=== PATIENT | male | born 1995 | race Two or more races ===

== ENCOUNTER 2019-09-16 21:25 | Emergency (ER) | payer SELFPAY ==
[~2019-09-16] VITALS: Ht 175.3 cm; Wt 86.2 kg
[2019-09-16 21:30] VITALS: BP 164/82
== END 2019-09-16 22:05 | disposition left against medical advice (07) ==
LOC: EDBD 21:25 → ER 21:27
DX: F10.10 Alcohol abuse, uncomplicated (principal); Z53.21 Procedure and treatment not carried out due to patient leaving prior to being seen by health care provider

== ENCOUNTER 2020-03-29 17:04 | Emergency (ER) | payer SELFPAY ==
[~2020-03-29] VITALS: Ht 175.3 cm; Wt 72.6 kg
[2020-03-29 17:48] LABS: Basophils # (auto) 0 10 ^3/uL (0-0.2); Basophils % (auto) 0.4 % (0.0-2.0); Eosinophils # (auto) 0 10 ^3/uL (0-0.8); Eosinophils % (auto) 0.2 % (0.0-7.0); Hematocrit 47.9 % (41.0-53.0); Lymphocytes # (auto) 2.1 10 ^3/uL (0.4-5.4); Mean Corpuscular Hemoglobin 32.5 pg (28.0-32.0); Mean Corpuscular Hgb Conc. 35.5 g/dL (32.0-36.0); Mean Corpuscular Volume 91.7 fL (80.0-100.0); Monocytes # (auto) 0.7 10 ^3/uL (0-1.3); Monocytes % (auto) 6.7 % (0.0-12.0); Neutrophils # (auto) 6.8 10 ^3/uL (1.6-8.6); Neutrophils % (auto) 70.7 % (37.0-80.0); Nucleated Red Blood Cells % 0.1 %; Platelet Count (auto) 259 10^3/uL (140-450); Red Blood Cells 5.22 10^6/uL (4.5-5.90); Red Cell Distribution Width 13.2 % (11.8-14.3); White Blood Cell 9.7 10^3/uL (4.4-10.8)
[2020-03-29 17:55] LABS: Urine Bacteria NONE SEEN /hpf (None Seen); Urine Blood Negative /uL (Negative); Urine Specific Gravity 1.001 (1.001-1.035); Urine WBC <1 /hpf (0 - 3)
[2020-03-29 17:59] LABS: Alcohol, Urine < 3.0 mg/dL (0-10); Amphetamine Screen, Urine POSITIVE (NEGATIVE); Barbiturate Scree,Urine NEGATIVE (NEGATIVE); Benzodiazephine Screen, Urine NEGATIVE (NEGATIVE); Cannabinoid Screen, Urine NEGATIVE (NEGATIVE); Cocaine Screen, Urine NEGATIVE (NEGATIVE); Phencyclidine Screen, Urine NEGATIVE (NEGATIVE)
[2020-03-29 18:00] LABS: Alanine Aminotransferase 35 U/L (16-61); Anion Gap 13 (5-15); Aspartate Aminotransferase 30 U/L (15-37); BUN/Creatinine Ratio 6.7; Blood Alcohol < 3.0 mg/dL (0-5); Blood Urea Nitrogen 7 mg/dL (7-18); Carbon Dioxide 21 mmol/L (21-32); Chloride 100 mmol/L (98-107); GFR African American 112 mL/min; GFR Non-African American 92 mL/min; Glucose 95 mg/dL (74-106); Magnesium 2.2 mg/dL (1.6-2.6); Potassium 3.6 mmol/L (3.5-5.1); Salicylate < 1.7 mg/dL (2.8-20.0); Sodium 134 mmol/L (136-145)
[2020-03-29 18:05] LABS: Alkaline Phosphatase 84 U/L (45-117); Bilirubin, Total 1.4 mg/dL (0.2-1.0); Total Protein 8.8 g/dL (6.4-8.2)
[2020-03-29 18:06] LABS: Opiate Scree,Urine NEGATIVE (NEGATIVE)
[2020-03-29 18:26] LABS: Acetaminophen < 2.0 ug/mL (10-30)
[2020-03-29 19:00] VITALS: BP 126/75
== END 2020-03-29 20:32 | disposition home or self-care (01) ==
LOC: ER 17:04 → EDBD 17:04 → ER 20:32
DX: R40.0 Somnolence (principal); F41.9 Anxiety disorder, unspecified
CPT/HCPCS: 36415; 80053; 80307; 80320; 80329; 81001; 83735; 84484; 85025

== ENCOUNTER 2022-07-23 23:32 | Emergency (ER) | payer SELFPAY ==
[~2022-07-23] VITALS: Ht 177.8 cm; Wt 90.7 kg
[2022-07-23 23:41] VITALS: BP 130/86
[2022-07-23] MEDS ORDERED: SODIUM CHLORIDE 0.9% 1,000 ML IV ONE (23:45)
[2022-07-23] MEDS ORDERED: LORazepam 2MG/ML-1ML VIAL IV ONE (23:45)
[2022-07-24 00:10] LABS: Basophils # (auto) 0.1 10 ^3/uL (0-0.2); Basophils % (auto) 0.6 % (0.0-2.0); Eosinophils # (auto) 0 10 ^3/uL (0-0.8); Eosinophils % (auto) 0.1 % (0.0-7.0); Lymphocytes # (auto) 1.2 10 ^3/uL (0.4-5.4); Lymphocytes % (auto) 13.5 % (10.0-50.0); Mean Corpuscular Hemoglobin 32.6 pg (28.0-32.0); Mean Corpuscular Hgb Conc. 35.5 g/dL (32.0-36.0); Mean Corpuscular Volume 91.7 fL (80.0-100.0); Monocytes # (auto) 0.6 10 ^3/uL (0-1.3); Monocytes % (auto) 6.3 % (0.0-12.0); Neutrophils # (auto) 7.1 10 ^3/uL (1.6-8.6); Neutrophils % (auto) 79.5 % (37.0-80.0); Red Blood Cells 4.91 10^6/uL (4.5-5.90); Red Cell Distribution Width 12.9 % (11.8-14.3)
[2022-07-24 00:24] LABS: Salicylate < 1.7 mg/dL (2.8-20.0)
[2022-07-24 00:25] LABS: Albumin 4.4 g/dL (3.4-5.0); Calcium 9.2 mg/dL (8.5-10.1); Magnesium 2.4 mg/dL (1.6-2.6); Potassium 3.2 mmol/L (3.5-5.1)
[2022-07-24 00:28] LABS: BUN/Creatinine Ratio 5.2 (10.0-20.0)
[2022-07-24 00:29] LABS: Acetaminophen < 2.0 ug/mL (10-30)
[2022-07-24 00:30] LABS: Bilirubin, Total 1.2 mg/dL (0.2-1.0); Total Protein 7.8 g/dL (6.4-8.2)
== END 2022-07-24 00:26 | disposition left against medical advice (07) ==
LOC: EDBD 23:32 → ER 23:32
DX: T65.91XA Toxic effect of unspecified substance, accidental (unintentional), initial encounter (principal); F17.210 Nicotine dependence, cigarettes, uncomplicated; F10.90 Alcohol use, unspecified, uncomplicated; F12.90 Cannabis use, unspecified, uncomplicated; F15.90 Other stimulant use, unspecified, uncomplicated; Z53.29 Procedure and treatment not carried out because of patient's decision for other reasons; Y92.89 Other specified places as the place of occurrence of the external cause
CPT/HCPCS: 36415; 80053; 80320; 80329; 83735; 85025; 93005; 96361; 96374; 99284; J2060; J7030